=== PATIENT | male | born 1955 | race Two or more races ===

== ENCOUNTER 2023-06-24 12:30 | Inpatient (IN) | payer OTHER ==
[~2023-06-24] VITALS: Ht 188 cm; Wt 104.3 kg
[2023-06-26] MEDS ORDERED: GLUMETZA1000 MG (14:06)
[2023-06-26] MEDS ORDERED: ATORVASTATIN CA20 MG (14:07)
[2023-06-26] MEDS ORDERED: TAMS0.4C (14:07)
[2023-06-26] MEDS ORDERED: FARXIGA10 MG (14:07)
[2023-06-26] MEDS ORDERED: RYBELSUS7 MG (14:08)
[2023-06-26] MEDS ORDERED: ZESTRIL10 M1 (14:08)
[2023-06-26] MEDS ORDERED: AMLODIPINE-OLM1 EAC1 (14:08)
[2023-07-08] MEDS ORDERED: CEFTRIAXONE SODIUM 2,000 MG VIAL ONE (09:17)
[2023-07-08] MEDS ORDERED: METRONIDAZOLE/SODIUM CHLORIDE 500 MG/100 ML PIGGYBACK IV ONE ×2 (09:17→12:45)
[2023-07-08] MEDS ORDERED: CEFTRIAXONE SODIUM 2,000 MG VIAL IV ONE (12:45)
[2023-07-08] MEDS ORDERED: OxyCODONE HCL 5 MG TABLET (ROXICODONE) PO PRN (14:15)
[2023-07-08] MEDS ORDERED: MORPHINE SULFATE 4 MG/ML VIAL IV PRN (14:15)
[2023-07-08] MEDS ORDERED: ONDANSETRON HCL 2 MG/ML VIAL IV PRN (14:15)
[2023-07-08] MEDS ORDERED: RINGERS SOLUTION,LACTATED 1,000 ML IV SCH (14:15)
[2023-07-08] MEDS ORDERED: OXYBUTYNIN CHLOR5 MG (16:07)
[2023-07-08] MEDS ORDERED: DESMOPRESSIN A0.2 MG (16:07)
[2023-07-08] MEDS ORDERED: METOCLOPRAMIDE HCL 5 MG/ML VIAL IV SCH (17:00)
[2023-07-08] MEDS ORDERED: GABAPENTIN 300 MG CAPSULE PO SCH (17:00)
[2023-07-08] MEDS ORDERED: CELECOXIB 200 MG CAPSULE PO SCH (17:00)
[2023-07-08] MEDS ORDERED: SIMETHICONE 125 MG CAPSULE PO SCH (17:00)
[2023-07-08] MEDS ORDERED: POLYETHYLENE GLYCOL 3350 17 GM BLIST.PACK PO SCH (17:00)
[2023-07-08] MEDS ORDERED: HYOSCYAMINE SULFATE 0.125 MG TAB.SUBL SL SCH (17:00)
[2023-07-08] MEDS ORDERED: INSULIN LISPRO 1,000 UNIT/10 ML UNITS SUBCUTANEO PRN (18:15)
[2023-07-08] MEDS ORDERED: ENALAPRILAT DIHYDRATE 1.25 MG/ML VIAL IV PRN (18:15)
[2023-07-08] MEDS ORDERED: DEXTROSE 50 % IN WATER 0.5 G/ML DISP.SYRIN IV PRN (18:15)
[2023-07-08 18:24] LABS: HEMATOCRIT 44.8 % (39.0-48.0); MEAN CELL VOLUME 90.5 fL (80.0-100.00); MEAN CORPUSCULAR HEMOGLOBIN 30.3 pg (27.00-32.0); MEAN CORPUSCULAR HGB CONC 33.5 g/dl (32.0-36.0); PLATELET COUNT 174 K/uL (150-450); RED BLOOD COUNT 4.95 M/uL (4.00-6.00)
[2023-07-08] MEDS ORDERED: ACETAMINOPHEN 500 MG GEL..CAP PO SCH (20:00)
[2023-07-08] MEDS ORDERED: LISINOPRIL 10 MG TABLET PO SCH (21:00)
[2023-07-08] MEDS ORDERED: TAMSULOSIN HCL 0.4 MG CAP PO SCH (21:00)
[2023-07-08] MEDS ORDERED: FAMOTIDINE/PF 20 MG/2 ML VIAL IV PUSH SCH (21:00)
[2023-07-09 07:12] LABS: CALCIUM 7.9 mg/dL (8.5-10.1); CREATININE SERUM 1.02 mg/dL (0.70-1.30); GFR 72.85; MAGNESIUM 1.9 mg/dL (1.8-2.4); PHOSPHOROUS 4.2 mg/dL (2.5-4.9); POTASSIUM 4.17 mEq/L (3.5-5.1)
[2023-07-09 07:18] LABS: HEMATOCRIT 43.7 % (39.0-48.0); HEMOGLOBIN 14.7 g/dL (13-16.00); MEAN CELL VOLUME 90.3 fL (80.0-100.00); MEAN CORPUSCULAR HEMOGLOBIN 30.4 pg (27.00-32.0); MEAN CORPUSCULAR HGB CONC 33.7 g/dl (32.0-36.0); PLATELET COUNT 177 K/uL (150-450); RED BLOOD COUNT 4.83 M/uL (4.00-6.00); RED CELL DISTRIBUTION WIDTH 12.9 % (11.5-14.5)
[2023-07-09] MEDS ORDERED: AMLODIPINE BESYLATE 10 MG TABLET PO SCH (09:00)
[2023-07-09] MEDS ORDERED: LACTULOSE 20 G/30 ML BLIST.PACK PO SCH (09:00)
[2023-07-09] MEDS ORDERED: LACTOBACILLUS ACIDOPHILUS 1 CAP CAP PO SCH (09:00)
[2023-07-09] MEDS ORDERED: ENOXAPARIN SODIUM 40 MG/0.4 ML SYRINGE SUBCUTANEO SCH (17:00)
[2023-07-09] MEDS ORDERED: ATORVASTATIN CALCIUM 20 MG TABLET PO SCH (17:00)
[2023-07-10 07:14] LABS: HEMATOCRIT 37.7 % (39.0-48.0); HEMOGLOBIN 12.6 g/dL (13-16.00); MEAN CELL VOLUME 88.9 fL (80.0-100.00); MEAN CORPUSCULAR HEMOGLOBIN 29.7 pg (27.00-32.0); MEAN CORPUSCULAR HGB CONC 33.4 g/dl (32.0-36.0); PLATELET COUNT 155 K/uL (150-450); RED BLOOD COUNT 4.24 M/uL (4.00-6.00); RED CELL DISTRIBUTION WIDTH 13.3 % (11.5-14.5)
[2023-07-10 07:32] LABS: CREATININE SERUM 1.05 mg/dL (0.70-1.30); GFR 70.45; MAGNESIUM 2.5 mg/dL (1.8-2.4); PHOSPHOROUS 3.3 mg/dL (2.5-4.9); POTASSIUM 3.62 mEq/L (3.5-5.1)
[2023-07-10] MEDS ORDERED: ENOXAPARIN SODIUM 40 MG/0.4 ML SYRINGE SUBCUTANEO SCH (09:00)
== END 2023-07-11 10:51 | disposition home or self-care (01) | DRG 331 ==
LOC: O/R 07-08 06:13 → SURG 07-08 12:15 → SURH 07-08 20:02
PROVIDERS: Internal Medicine Geriatric Medicine; ADMIT Colon & Rectal Surgery; ATTEND Colon & Rectal Surgery
PROC: 0DBP4ZZ Excision of Rectum, Percutaneous Endoscopic Approach (ICD-10-PCS; 2023-07-08)
PROC: 0DTN4ZZ Resection of Sigmoid Colon, Percutaneous Endoscopic Approach (ICD-10-PCS; principal; 2023-07-08 12:15)
DX: C18.6 Malignant neoplasm of descending colon (principal); K66.0 Peritoneal adhesions (postprocedural) (postinfection)